=== PATIENT | female | born 1955 | race Caucasian/White ===

== ENCOUNTER 2017-01-08 16:50 | Emergency (ER) | payer OTHER ==
[2017-01-08 16:58] VITALS: BP 148/95; PULSE 79; TEMP 98.2; BMI 25.7
--- NOTE | 2017-01-08 17:23 | PDOC ---
History of Present Illness - General Chief Complaint: Hemorrhoids Stated Complaint: HEMORRHOIDS Time Seen by Provider: 01/08/17 17:07 History Source: Patient - History of Present Illness Timing/Duration: reports: constant Past History - Past Medical History Allergies/Adverse Reactions: Allergies Allergy/AdvReac Type Severity Reaction Status Date / Time aspirin Allergy Verified 01/08/17 16:52 Penicillins Allergy Verified 01/08/17 16:52 Home Medications: Ambulatory Orders Docusate Sodium [Colace -] 100 mg PO DAILY #14 capsule 01/08/17 Hydrocortisone Acetate [Anusol Hc Suppository -] 25 mg RC DAILY #28 supp.rect GI Disorders: Yes (IBS,CONSTIPATION) Other medical history: BACK/SCOLIOSIS,ARITHRITIS,FIBROMYALGIA - Surgical History Abdominal Surgery: Yes (MASS REMOVED) - Psycho/Social/Smoking Cessation Hx Anxiety: No Suicidal Ideation: No Smoking History: Current every day smoker Have you smoked in the past 12 months: Yes Number of Cigarettes Smoked Daily: 30 Information on smoking cessation initiated: Yes 'Breaking Loose' booklet given: 01/08/17 Hx Alcohol Use: No Drug/Substance Use Hx: No Substance Use Type: None Review of Systems - Review of Systems ABD/GI: Yes: Blood Streaked Bowels. No: Abdominal cramping *Physical Exam - Vital Signs Last Vital Signs Temp Pulse Resp BP Pulse Ox 98.2 F 79 18 148/95 100 01/08/17 16:53 01/08/17 16:53 01/08/17 16:53 01/08/17 16:53 01/08/17 16:53 - Physical Exam General Appearance: Yes: Appropriately Dressed. No: Apparent Distress HEENT: positive: Normal Voice Neck: positive: Supple Respiratory/Chest: negative: Respiratory Distress Gastrointestinal/Abdominal: positive: Soft. negative: Tender Rectal Exam: positive: hemorrhoids (no thrombosis) Integumentary: positive: Dry, Warm Neurologic: positive: Fully Oriented, Alert, Normal Mood/Affect Medical Decision Making - Medical Decision Making 01/08/17 17:19 61 yo F, multiple comorbidities, including chronic LBP on narcotics, constipation currently on miralax, hemorrhoids, p/w painful hemorrhoid since yesterday. States she is currently "straining" to defecate but that miralax helps. Also c/o trace brbpr in stool. Not on blood thinners See exam External hemorrhoid in setting of constipation in pt on narcotics 1 large, non-thrombosed hemorrhoid on exam -dc w/ stool softener, anusol, sitz bath and GI f/u 01/08/17 17:26 *DC/Admit/Observation/Transfer Diagnosis at time of Disposition: Hemorrhoid Qualifiers: Hemorrhoid type: unspecified Qualified Code(s): K64.9 - Unspecified hemorrhoids - Discharge Dispostion Disposition: HOME Condition at time of disposition: Good - Prescriptions Prescriptions: Hydrocortisone Acetate [Anusol Hc Suppository -] 25 mg RC DAILY #28 supp.rect Docusate Sodium [Colace -] 100 mg PO DAILY #14 capsule - Patient Instructions Printed Discharge Instructions: DI for Hemorrhoids Additional Instructions: Take medications as directed, drink plenty of fluids and increase fiber in diet. Sit in warm to hot water in tub daily to further relieve inflammation Follow up with your GI doc in 2 weeks
== END 2017-01-08 17:25 | disposition home or self-care (01) ==
LOC: JERFT 16:50
DX: K64.4 Residual hemorrhoidal skin tags (principal); M54.5 Low back pain
CPT/HCPCS: 99281-25